=== PATIENT | female | born 1980 | race Caucasian/White ===

== ENCOUNTER 2021-08-28 09:15 | Emergency (ER) | payer MEDICAID, OTHER ==
[~2021-08-28] VITALS: Ht 172.7 cm; Wt 90.7 kg
[~2021-08-28 09:15] MED LIST: DIPH25TA62 PO; ZYRTEC PO
--- NOTE | 2021-08-28 09:35 | NUR ---
patient brought into room waiting to see physician. patient complains of bad nasal congestion, no more flu, has tested negative for covid x2.
--- NOTE | 2021-08-28 09:50 | NUR ---
patient seen by Dr. Ventura.
[2021-08-28] MEDS ORDERED: AMOX-430 PO (10:01)
[2021-08-28] MEDS ORDERED: IBUP-1957 PO (10:01)
--- NOTE | 2021-08-28 10:06 | NUR ---
patient given discharge paperwork. prescriptions given electronically.
== END 2021-08-28 10:13 | disposition home or self-care (01) ==
LOC: ER 09:25
DX: J32.9 Chronic sinusitis, unspecified (principal); J45.909 Unspecified asthma, uncomplicated; R03.0 Elevated blood-pressure reading, without diagnosis of hypertension
CPT/HCPCS: A4663